=== PATIENT | female | born 1950 | race Caucasian/White ===

== ENCOUNTER → 2024-07-14 14:41 | Outpatient (REF) | payer MEDICARE, BC, SELFPAY | LOC: RCS 14:41 | PROVIDERS: ATTENDING PHYSICIAN Internal Medicine Cardiovascular Disease; FAMILY PHYSICIAN Family Medicine | DX: I35.1 Nonrheumatic aortic (valve) insufficiency (principal); R42 Dizziness and giddiness | CPT/HCPCS: 93306 ==